=== PATIENT | male | born 1995 | race Caucasian/White ===

== ENCOUNTER 2017-02-02 16:12 | Emergency (ER) | payer SELFPAY ==
[~2017-02-02] VITALS: Ht 180.3 cm; Wt 131.0 kg
[2017-02-02 16:47] VITALS: Ht 180.3 cm; Wt 131.0 kg
--- NOTE | 2017-02-02 17:09 | ERD ---
ER Documentation Chief Complaint Date/Time DATE: 02/02/17 TIME: 17:05 Chief Complaint SENT FROM [facility]D FOR HIGH B/P. C/O SLIGHT FISHER HPI This is a 21-year-old male that presents to the ER sent by his primary care doctor for high blood pressure readings and his primary care doctor's office. Patient is otherwise healthy and has never had any problems with his blood pressure. He denies any chest pain, shortness of breath, loss of vision. Patient does admit to a slight frontal headache, which is very mild. He denies any eye pain, head trauma, dizziness, loss of consciousness. Blood pressure readings at his primary care doctor's office were right arm 157/109 and left arm 172/107. ROS 12 point review of systems was done, all negative except per HPI. Medications Home Meds No Active Prescriptions or Reported Meds Allergies Allergies: Coded Allergies: No Known Allergy (Unverified , 02/02/17) PMhx/Soc History of Surgery: No Anesthesia Reaction: No Hx Neurological Disorder: No Hx Respiratory Disorders: No Hx Cardiac Disorders: No Hx Psychiatric Problems: No Hx Miscellaneous Medical Probl: No Hx Alcohol Use: No Hx Substance Use: No Hx Tobacco Use: No Physical Exam Vitals Vital Signs Date Time Temp Pulse Resp B/P Pulse Ox O2 Delivery O2 Flow Rate FiO2 02/02/17 16:47 98.3 78 20 138/94 99 Physical Exam GENERAL: The patient is well developed and appropriate for usual state of health , in no apparent distress. HEENT: Atraumatic. Conjunctivae are pink. Pupils equal, round, and reactive to light. Extraocular muscles are grossly intact. CHEST: Clear to auscultation bilaterally. There are no rales, wheezes or rhonchi. HEART: Regular rate and rhythm. No murmurs, clicks, rubs or gallops. ABDOMEN: Soft, nontender and nondistended No pulsatile masses. NEURO: Alert and oriented. Cranial nerves II through XII are intact. Procedures/MDM This is a 21-year-old male was sent to the ER by his primary care doctor for elevated blood pressure readings. In the ER patient's vital signs are normal. He does not have any signs or symptoms of hypertensive emergency or urgency. Patient is overweight, they may have been using wrong cuff size at the clinic. Patient is neurologically intact with no focal neurological deficits. At this time I doubt intracranial pathology. Has denied any vision changes or any other symptoms. Patient is extremely well appearing. Patient was given instructions on following up with his primary care doctor or his blood pressure. He was educated on normal blood pressure and high blood pressure. At this time I do not believe it is necessary to reduce patient's bp as it is normal. I do not believe high bp medications should be started as this is the first time patient has had a high bp reading. Patient needs to follow-up with his primary care doctor within 1-2 days or return to ER sooner symptoms worsen. My medical decision making was shared with the patient he understands and agrees with plan. Departure Diagnosis: Primary Impression: Borderline high blood pressure Condition: Stable Patient Instructions: High Blood Pressure (Hypertension) Additional Instructions: Call your primary care doctor TOMORROW for an appointment during the next 1-2 days.See the doctor sooner or return here if your condition worsens before your appointment time. SOILA FREEMAN Feb 02, 2017 17:09
== END 2017-02-02 16:59 | disposition home or self-care (01) ==
LOC: E/R 16:12
DX: R03.0 Elevated blood-pressure reading, without diagnosis of hypertension (principal)
CPT/HCPCS: 99282